=== PATIENT | male | born 1980 ===

== ENCOUNTER 2025-04-19 08:26 | Emergency (ER) | payer OTHER, SELFPAY ==
--- OUTSIDE RECORDS SUMMARY | 2025-04-19 08:28 | XMS_ITS | Clinical Summary ---
Author Organization [facility] Address [address] [place] [id number] Care Team Providers Care Medical Services Coordinator Name Role Phone Pcp, No Primary Care Provider Unavailabl e Allergies No known active allergies Medications clotrimazole-be tamethasone cream (LOTRISONE) 1-0.05 % cream Apply daily for 7 days--repeat 1 week later( 1week holiday) for 1 week,Apply to penis/foreskin ,Dispense 45gram tube 1 Tube 0 5 Active clotrimazole (LOTRIMIN) 1 % creamIndication s:Tinea Apply topically to affected area(s) 2 times daily. 45 g 1 Active triamcinolone (ARISTOCORT; KENALOG) 0.1 % creamIndication s:Dermatitis Apply topically to affected area(s) three times daily. 80 g 3 Active terbinafine HCL (LAMISIL) 250 mg tabletIndicatio ns:Dermatitis Take 1 Tablet (250 mg) by mouth once daily. 30 Tablet 3 Active clobetasol cream 0.05% (TEMOVATE) 0.05 % creamIndication s:Dermatitis Apply topically to affected area(s) two times daily. Apply topical 60 g 2 3 Active Active Problems Problem Noted Date Diagnosed Date Cervical pain 05/21/2013 Allergic rhinitis, cause unspecified 12/09/2010 Allergic conjunctivitis 12/09/2010 Family History Medical History Relation Name Comments Hyperlipidemia Brother Hyperlipidemia Father Hypertension Mother Relation Name Status Comments Brother Father Mother Social History Tobacco Use Types Packs/Day Years Used Date Smoking Tobacco: Never Smokeless Tobacco: Never Tobacco Cessation:Counseling Given: Yes Alcohol Use Standard Drinks/Week Comments Never 0 (1 standard drink = 0.6 oz pur e alcohol) PHQ-2 Answer Date Recorded PHQ-2 TOTAL SCORE 3 08/18/2021 Social Connections Answer Date Recorded Frequency of Communication with Friends and Fami ly Not on file 11/28/2021 Financial Resource Strain Answer Date R ecorded Difficulty of Paying Living Expenses Not on file 11/28/2021 Difficulty of Paying Living Expenses Not on file 11/28/2021 Sex and Gender Information Value Date Recorded Sex Assigned at Not on file 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 Gender Identity Not on file Sexual Orientation Not on file Obstetrics History Last Filed Vital Signs Vital Sign Reading Time Taken Comments Blood Pressure 117/77 01/28/2023 3:24 PM DESKTOP TECHNICIAN Pulse 66 01/28/2023 3:24 PM DESKTOP TECHNICIAN Temperature 36.9 C (98.4 F) 04/22/2015 3:10 PM CDT Respiratory Rate - - Oxygen Saturation 98% 01/28/2023 3:24 PM DESKTOP TECHNICIAN Inhaled Oxygen Concentration - - Weight 88.4 kg (194 lb 12.8 oz) 01/28/2023 3:24 PM DESKTOP TECHNICIAN Height 166 cm (5' 5.35) 08/18/2021 5:13 PM CDT Body Mass Index 32.07 08/18/2021 5:13 PM CDT Plan of Treatment Health Maintenance Due Date Last Done Comments Tdap 1992 Depression screening for age 12+ 1993 HIV for age 15-65 1996 Hepatitis C screening for ag e 18-79 1999 Tetanus booster 2001 BMI (ht and wt on same day) for age 18+ 08/18/2022 08/18/2021 COVID-19 vaccine series ( season) 2024 12/31/2021, 12/10/2021 Influenza Vaccine (Season Ended) 2025 Lipids for age 35-44 08/18/2026 08/18/2021, 12/16/2016 Pneumococcal series for age 6-49 Aged Out No longer eligible b ased on patient's age to complete this topic Procedures Procedure Name Priority Date/Time Associated Diagnosis Comments LIPID PANEL W REFLEX MEASURED LDL Routine 08/18/2021 6:00 PM CDT Physical exam from Last 3 Months or Most Recently Relevant to Health Maintenance Results * (ABNORMAL) LIPID PANEL W REFLEX MEASURED LDL (08/18/2021 6:00 PM CDT) CHOLESTEROL,TOTAL 192 100 - 199 mg/dL 08/19/2021 4:56 PM CDT [facility] TRIGLYCERIDES 223(H) <150 mg/dL 08/19/2021 4:56 PM CDT [facility] HDL CHOLESTEROL 46 >40 mg/dL 4:56 PM CDT [facility] NON-HDL CHOLESTEROL 146(H) <145 mg/dl 08/19/2021 4:56 PM CDT [facility] CHOL/HDL RATIO 4.17 <4.50 08/19/2021 4:56 PM CDT [facility] LDL CHOLESTEROL 101 <=130 mg/dL 08/19/2021 4:56 PM CDT [facility] VLDL CHOLESTEROL 45(H) <=30 mg/dL 08/19/2021 4:56 PM CDT [facility] PROVIDER ORDERED STATUS RANDOM 08/19/2021 4:56 PM CDT [facility] Blood BLOOD SPECIMEN / Unknown Venipuncture / Unknown 08/18/2021 6:00 PM CDT 08/18/2021 6:05 PM CDT us Lydia Murray DO CHEMISTRY Final Result [facility] [address] [place] [address], [place] from Last 3 Months or Most Recently Relevant to Health Maintenance Care Teams Medical Services Coordinator Relationship Specialty Start Date End Date Pcp, No . PCP - General 01/28/23
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
[2025-04-19 09:00] VITALS: BP 111/69; PULSE 55; RESP 16; TEMP 36.9; O2SAT 97; BMI 28.3
[2025-04-19 09:09] VITALS: BP 123/69; PULSE 51; RESP 16; O2SAT 97
[2025-04-19 09:12] VITALS: BP 108/63; PULSE 52; RESP 14; O2SAT 97
[2025-04-19 09:14] LABS: Basophils Absolute Auto 0.03 K/uL (0.00-0.30); Basophils Percent Auto 0.5 % (0.0-3.0); Eosinophils Absolute Auto 0.13 K/uL (0.00-0.50); Eosinophils Percent Auto 2.4 % (0.0-7.0); Hematocrit 45.2 % (37.0-53.0); Hemoglobin* 15.3 gm/dL (13.5-17.5); Immature Granulocytes Abs Auto 0.03 K/uL (0.00-0.30); Immature Granulocytes Pct Auto 0.5 %; Lymphocytes Absolute Auto 1.47 K/uL (0.90-2.90); Lymphocytes Percent Auto 26.6 % (20-44); Mean Corpuscular HGB Conc 34 gm/dL (32-36); Mean Corpuscular Hemoglobin 31 pg (26-34); Mean Corpuscular Volume 90 fL (80-100); Monocytes Percent Auto 9.9 % (0.0-11.0); Neutrophils Absolute Auto 3.32 K/uL (1.7-7.0); Neutrophils Percent Auto 60.1 % (42.0-72.0); Platelet Count* 181 K/uL (140-440); RDW Coefficient of Variation % 12.5 % (11.5-15.5); Red Blood Count 5.02 m/uL (4.30-5.90); White Blood Count* 5.53 K/uL (4.50-11.00)
[2025-04-19 09:22] VITALS: BP 108/66; PULSE 49; RESP 16; O2SAT 97
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
[2025-04-19 09:26] LABS: Slide Review Reflex No
[2025-04-19 09:28] LABS: Chloride* 107 mmol/L (96-114); Potassium* 4.3 mmol/L (3.6-5.1); Sodium* 137 mmol/L (135-149)
[2025-04-19 09:31] LABS: Blood Urea Nitrogen* 16 mg/dL (5-24); Creatinine* 0.9 mg/dL (0.5-1.5); Estimated Glomerular Filt Rate 108 ml/min
[2025-04-19 09:32] VITALS: BP 99/70; PULSE 58; RESP 12; O2SAT 97
[2025-04-19 09:32] LABS: Anion Gap 2 mEq/L (7-15); Calcium* 9.1 mg/dL (8.4-10.6); Carbon Dioxide* 28 mmol/L (20-32); Glucose* 97 mg/dL (60-115)
[2025-04-19 09:41] VITALS: BP 107/74; PULSE 52; RESP 14; O2SAT 94
== END 2025-04-19 09:59 | disposition home or self-care (01) ==
LOC: ED 10:02
PROVIDERS: Emergency Provider Internal Medicine
DX: M54.2 Cervicalgia (principal); V43.52XA Car driver injured in collision with other type car in traffic accident, initial encounter
CPT/HCPCS: 36415; 70450; 71250; 72125; 74176; 80048; 81003; 85025; 99283; 99291